=== PATIENT | female | born 1955 | race Caucasian/White ===

== ENCOUNTER → 2017-07-23 | Outpatient (CLI) | payer OTHER ==
--- NOTE | 2017-07-23 09:30 | CT ---
EXAMINATION TYPE: CT iac wo con DATE OF EXAM: 07/23/2017 COMPARISON: NONE HISTORY: Tinnitus, Mastoiditis CT DLP: 142.70mGycm Automated exposure control for dose reduction was used. FINDINGS: The external auditory canals are normal without expansion or erosion. The middle ear ossi cles are symmetric and unremarkable. There is no evidence of suspicious surrounding soft tissue dens ity to suggest cholesteatoma. The scutum is preserved bilaterally. The cochlea and the semicircular canals are symmetric and unremarkable. Vestibular aqueduct and internal carotid canal appear unrema rkable. Temporomandibular joints are maintained bilaterally. There are some mucosal thickening is w ithin the left maxillary sinus. Left septal deviation is noted. Small retention cyst within the anter ior right sphenoid sinus. Mild mucosal thickening is within the anterior ethmoid air cells. Frontal s inuses are clear. Mastoid air cells appear clear. IMPRESSION: 1. Normal internal auditory canal study. 2. Mild mucosal thickening and retention cyst within the paranasal sinuses discussed above. Correlate for possible left maxillary sinusitis.
== END | disposition home or self-care (01) ==
LOC: RADCTMAIN 07:19
PROVIDERS: ATTEND Otolaryngology
DX: J34.1 Cyst and mucocele of nose and nasal sinus (principal); J34.89 Other specified disorders of nose and nasal sinuses
CPT/HCPCS: 70480

== ENCOUNTER 2018-02-06 11:03 | Day surgery (SDC) | payer MEDICARE, OTHER ==
[2018-01-31 15:49] VITALS: BMI 30.9
[~2018-02-06 11:03] MED LIST: DEXAMETHASONE SOD PHOSPHATE 10 MG/ML 1 ML VIAL IV ONE; HYDROmorphone 0.5 MG/0.5 ML SYRINGE IVP PRN; LACTATED RINGERS 1,000 ML IV SCH; MIDAZOLAM 2 MG/2 ML VIAL IV PRN; MORPHINE SULFATE 4 MG/ML SYRINGE IV PRN; ONDANSETRON 4 MG/2 ML VIAL IVP ONE; ONDANSETRON 4 MG/2 ML VIAL IVP PRN; Pre Op ABX Message 1 EACH MISC MISCELLANE ONE
[2018-02-06] MEDS ORDERED: ONDANSETRON 4 MG/2 ML VIAL ONE (11:33)
[2018-02-06 11:39] VITALS: RESP 16; TEMP 98.3
[2018-02-06] MEDS ORDERED: fentaNYL (PF) 50 MCG/ML 2 ML AMP ONE (13:10)
[2018-02-06] MEDS ORDERED: PROPOFOL 10 MG/ML 20 ML VIAL IV ONE (13:10)
[2018-02-06] MEDS ORDERED: MIDAZOLAM 2 MG/2 ML VIAL ONE (13:10)
[2018-02-06] MEDS ORDERED: ceFAZolin 1,000 MG/50 ML BAG (PMX) IVPB ONE (13:17)
[2018-02-06] MEDS ORDERED: SODIUM CHLORIDE 0.9% 50 ML with ceFAZolin 2,000 MG IV ONE ×2 (13:17)
[2018-02-06] MEDS ORDERED: BUPIVACAINE (PF) 0.25% 30 ML VIAL SQ ONE (13:25)
[2018-02-06 14:08] VITALS: PULSE 63
--- NOTE | 2018-02-06 14:14 | P.OP ---
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 The patient's left foot and ankle were then prepped and draped in the usual aseptic manner and over heavy web roll padding an ankle tourniquet was placed above the malleoli of the patient's left ankle At this point in time attention was directed to the dorsal aspect of the third metatarsal where an approximately 3 cm dorsolinear incision was made the incision was deepened via sharp dissection down through the level of the subcutaneous tissue layers all neurovascular structures encountered were identified isolated and were retracted and any bleeding vessels were clamped electrocauterized dissection was then carried deep down to level of the Periosteal Structures Overlying the Metaphysis Area of the Distal Aspect of the Third Metatarsal Where 28-gauge Monofilament Stainless Steel Wire Was Identified Fixating a past Osteotomy This Was Cut and Removed in Total from the Surgical Site. At This Point in Time V Metatarsal Osteotomy Was Performed and a Dorsal to Plantar Manner upon Completion of the Osteotomy the Capital Fragment Was Displaced Dorsally by Approximately 2 Mm and Impacted Back upon the Ten Created by the Osteotomy. The Osteotomy Was Then Fixated with a 0.45 K Wire. Throughout the Surgical Procedure Copious Amounts Sterile Saline Solution Was Used To Irrigate the Surgical Site. Periosteal Structures and Subcutaneous Tissues Were Then Coaptated and Maintained Utilizing 3-0 Vicryl Simple Interrupted Suture and the Skin Was Closed Utilizing 4-0 Vicryl Simple Interrupted Suture. Adaptic Kerlix Fluffs Four-Inch Conformer and 4 Inch Coban Was Used To Form a Compression Dressing and the Ankle Tourniquet to the Patient's Left Ankle Was Deflated Adequate Hemostatic Return Was Seen in All Digits the Patient's Left Foot Specifically the Third Digit the Patient Tolerated the Surgery and Anesthesia Well Was Taken Recovery Room in Good Postoperative Condition
[2018-02-06 14:25] VITALS: BP 115/67
== END 2018-02-06 14:39 ==
LOC: OR 11:03
PROVIDERS: ATTEND Podiatrist Foot & Ankle Surgery
DX: M89.8X7 Other specified disorders of bone, ankle and foot (principal); M89.3 Hypertrophy of bone; M19.90 Unspecified osteoarthritis, unspecified site; Z79.891 Long term (current) use of opiate analgesic; Z79.51 Long term (current) use of inhaled steroids; Z79.899 Other long term (current) drug therapy; Z87.891 Personal history of nicotine dependence

== ENCOUNTER → 2019-09-12 | Outpatient (CLI) | payer MEDICARE, OTHER ==
--- NOTE | 2019-09-12 12:57 | CTL ---
EXAMINATION TYPE: CT Low Dose Lung DATE OF EXAM ORDERED: 09/12/2019 HISTORY: Long-term tobacco use. Lung cancer screening CT DLP: [address]DI: 2.83 mGy Automated exposure control for dose reduction was used. SCREENING VISIT: Initial study COMPARISON: None TECHNIQUE: Low dose computed tomography scan was performed through the chest at 1 mm thick sections a nd reconstructed images in the coronal plane at [address] DIAGNOSTIC QUALITY: Satisfactory FINDINGS: LUNG NODULES: Non of significance. Incidental calcified 4 x 3 mm right lower lobe nodule or granuloma axial image 153 LUNGS: COPD: Severity: None Fibrosis: Severity: Mild bibasilar Lymph nodes: None Other findings: None BILATERAL PLEURAL SPACE: Effusion: None Calcification: None Thickening: None Pneumothorax: None HEART: Heart Size: Normal Coronary calcification: None Pericardial effusion: None OTHER FINDINGS: Upper abdomen: None Bony thorax: Mild multilevel spurring. Supraclavicular region: None Other: None. IMPRESSION: No suspicious nodules are evident. FOLLOW UP CT CHEST RECOMMENDATION: Annual low-dose lung screening CT. CT LUNG RAD: Lung-Rad 1 Negative
== END | disposition home or self-care (01) ==
LOC: RADCTMAIN 11:28
PROVIDERS: ATTEND Family Medicine
DX: Z12.2 Encounter for screening for malignant neoplasm of respiratory organs (principal); Z87.891 Personal history of nicotine dependence

== ENCOUNTER 2019-09-18 08:30 | Day surgery (SDC) | payer MEDICARE, OTHER ==
[2019-09-16 12:49] VITALS: BMI 32.5
[~2019-09-18 08:30] MED LIST changes: -DEXAMETHASONE SOD PHOSPHATE 10 MG/ML 1 ML VIAL IV ONE; -HYDROmorphone 0.5 MG/0.5 ML SYRINGE IVP PRN; +LIDOCAINE 1% 20 ML VIAL (10MG/ML) FOR IV START INTRADERMA PRN; -MIDAZOLAM 2 MG/2 ML VIAL IV PRN; -MORPHINE SULFATE 4 MG/ML SYRINGE IV PRN; -ONDANSETRON 4 MG/2 ML VIAL IVP ONE; -ONDANSETRON 4 MG/2 ML VIAL IVP PRN; -Pre Op ABX Message 1 EACH MISC MISCELLANE ONE
[2019-09-18 08:48] VITALS: RESP 18; TEMP 98.1
[2019-09-18] MEDS ORDERED: PROPOFOL 10 MG/ML 20 ML VIAL IV ONE (09:24)
[2019-09-18] MEDS ORDERED: LIDOCAINE 1% INJ 10MG/ML (20 ML MDV) ONE (09:24)
--- NOTE | 2019-09-18 09:27 | P.GSHP ---
History of Present Illness H&P Date: 09/18/19 Chief Complaint: Screening colonoscopy Is a 61-year-old female who presents today for screening colonoscopy. Patient denies any significant GI complaints. Past Medical History Past Medical History: Musculoskeletal Disorder, Osteoarthritis (OA) Additional Past Medical History / Comment(s): DDD in neck, sciatic pain down into buttocks History of Any Multi-Drug Resistant Organisms: None Reported Past Surgical History: Ear Surgery, Orthopedic Surgery, Tubal Ligation Additional Past Surgical History / Comment(s): Left foot surgery, left knee surgery X2, left ear tube. Past Anesthesia/Blood Transfusion Reactions: No Reported Reaction Past Psychological History: No Psychological Hx Reported Smoking Status: Current every day smoker Past Alcohol Use History: Occasional Additional Past Alcohol Use History / Comment(s): Quit smoking Dec 14, smoked for 50 yrs, 1 PPD, started smoking again 8 months ago Past Drug Use History: None Reported - Past Family History Mother Family Medical History: No Reported History Medications and Allergies Home Medications Medication Instructions Recorded Confirmed Type Hydrocodone/Acetaminophen 1 each PO BID 01/31/18 09/16/19 History [Hydrocodon-Acetaminophn 10-325] Morphine Sulfate [Morphine Sulfate 15 mg PO BID 01/31/18 09/16/19 History ER] Allergies Allergy/AdvReac Type Severity Reaction Status Date / Time No Known Allergies Allergy Verified 09/16/19 12:45 Surgical - Exam Vital Signs Temp Pulse Resp BP Pulse Ox 98.1 F 94 18 134/79 94 L 09/18/19 08:46 09/18/19 08:46 09/18/19 08:46 09/18/19 08:46 09/18/19 08:46 - General well developed, well nourished, no distress - Eyes PERRL - ENT normal pinna - Neck no masses - Respiratory normal expansion - Cardiovascular Rhythm: regular - Abdomen Abdomen: soft, non tender Assessment and Plan Assessment: We'll perform screening colonoscopy.
--- NOTE | 2019-09-18 09:45 | P.OP ---
Date of Procedure: 09/18/19 Preoperative Diagnosis: Screening colonoscopy Postoperative Diagnosis: Diverticulosis Procedure(s) Performed: Colonoscopy Anesthesia: JAYASHREE Surgeon: Lev Salas Pathology: none sent Condition: stable Disposition: PACU Description of Procedure: The patient's placed on the endoscopy table in the lateral position. She received IV sedation. Digital rectal exam was performed. The flexible colonoscope was then placed patient anus passed rotator entire colon. The ileocecal valve was visually is. The cecum, ascending and transverse colon appeared normal. In the descending and; there is evidence of diverticulosis. There is known to diverticulitis. Scope was then brought back the rectum and this appeared normal. Scope withdrawn for patient.
[2019-09-18 09:47] VITALS: PULSE 79
[2019-09-18 10:06] VITALS: BP 120/80
== END 2019-09-18 10:40 | disposition home or self-care (01) ==
LOC: ORWHC2ENDO 08:30
PROVIDERS: ATTEND Surgery
DX: Z12.11 Encounter for screening for malignant neoplasm of colon (principal); K57.30 Diverticulosis of large intestine without perforation or abscess without bleeding; M19.90 Unspecified osteoarthritis, unspecified site; M50.30 Other cervical disc degeneration, unspecified cervical region; F17.210 Nicotine dependence, cigarettes, uncomplicated; Z98.890 Other specified postprocedural states; Z98.51 Tubal ligation status; Z79.891 Long term (current) use of opiate analgesic
CPT/HCPCS: J2001; J2704; G0121

== ENCOUNTER → 2019-09-19 | Outpatient (CLI) | payer MEDICARE, OTHER ==
--- NOTE | 2019-09-19 10:47 | MR ---
EXAMINATION TYPE: MR knee RT wo con DATE OF EXAM: 09/19/2019 COMPARISON: None HISTORY: Right knee pain TECHNIQUE: Multiplanar, multisequence images of the knee is performed without IV contrast. FINDINGS: MEDIAL MENISCUS: Anterior and posterior horns are intact without tear. LATERAL MENISCUS: Anterior horn lateral meniscus appears largely intact. A small amount of increased signal within the posterior aspect of the anterior horn may be present could be some mild internal de rangement. Posterior horn lateral meniscus has long weak signal extending towards the inferior articu lar surface compatible with internal arrangement or along the tear. Communication with the inferior a rticular surface is not well visualized. CRUCIATE LIGAMENTS: The anterior and posterior cruciate ligaments are intact and unremarkable. COLLATERAL LIGAMENTS: The medial collateral ligament and lateral collateral ligament complex are inta ct and unremarkable. EXTENSOR MECHANISM: Visualized quadriceps and patellar tendons are intact. EFFUSION: Small to moderate joint effusion is present. POPLITEAL CYST: No popliteal/schreiber cyst. TRICOMPARTMENT SPACES: There is narrowing of the lateral compartment joint space. Within the anterior aspect just above the tibia there is an area of focal increased signal which may extend towards the tibia has communication with the joint fluid. Synovial cyst could be considered. Meniscal cyst could be within the differential although location is atypical. There is some intermediate signal within th is fluid collection. No free body is identified on the plain films. Note is made of lateral tibial pl ateau and lateral femoral condylar spurring. CARTILAGE: There is diffuse thinning of the articular cartilage. There is a small focal area of incre ased signal within the articular cartilage on the lateral femoral condyle. Series 401 image 19, serie s 301 image 22. A small articular cartilage fracture could be considered. There is milder thinning of the patellofemoral articular cartilage. BONE MARROW SIGNAL: No focal abnormal marrow signal is appreciated. OTHER: No additional significant abnormality is appreciated. IMPRESSION: 1. Diffuse osteoarthritic degenerative change. 2. Oblique tear posterior horn lateral meniscus. 3. Small internal arrangement of the posterior aspect of the anterior horn lateral meniscus may also be present. 4. Suspected articular cartilage fracture of the lateral femoral condyle articular cartilage.
== END | disposition home or self-care (01) ==
LOC: RADMRIMAIN 08:32
PROVIDERS: ATTEND Orthopaedic Surgery
DX: S83.241A Other tear of medial meniscus, current injury, right knee, initial encounter (principal); M17.11 Unilateral primary osteoarthritis, right knee

== ENCOUNTER → 2019-10-14 | Outpatient (CLI) | payer MEDICARE, OTHER ==
--- NOTE | 2019-10-15 11:48 | MM ---
Reason for exam: screening (asymptomatic). Last mammogram was performed 4 years and 5 months ago. History: Patient is postmenopausal. Took estrogen for 1 year beginning at age 52. Took progesterone for 1 year beginning at age 52. Physical Findings: A clinical breast exam by your physician is recommended on an annual basis and results should be correlated with mammographic findings. MG 3D Screening Mammo W/Cad Bilateral CC and MLO view(s) were taken. Prior study comparison: May 19, 2015, bilateral MG screening mammo w CAD. January 22, 2014, bilateral digital screening mammo w/CAD. There are scattered fibroglandular densities. No suspicious abnormality. No significant changes when compared with prior studies. ASSESSMENT: Negative, BI-RAD 1 RECOMMENDATION: Routine screening mammogram of both breasts in 1 year.
== END | disposition home or self-care (01) ==
LOC: RADMAMWWP 08:59
PROVIDERS: ATTEND Family Medicine
DX: Z12.31 Encounter for screening mammogram for malignant neoplasm of breast (principal)
CPT/HCPCS: 77063; 77067

== ENCOUNTER → 2019-11-27 | Outpatient (CLI) | payer MEDICARE, OTHER ==
[2019-11-27 10:35] LABS: Basophils % (A) 0 %; Eosinophils # (A) 0.1 k/uL (0-0.7); Eosinophils % (A) 1 %; HCT 44.2 % (34.0-46.0); HGB 14.3 gm/dL (11.4-16.0); Lymphocytes # (A) 0.9 k/uL (1.0-4.8); Lymphocytes % (A) 10 %; MCH 29.9 pg (25.0-35.0); MCHC 32.4 g/dL (31.0-37.0); MCV 92.3 fL (80.0-100.0); Mean Platelet Volume 7.1; Monocytes # (A) 0.3 k/uL (0-1.0); Monocytes % (A) 3 %; Neutrophils # (A) 7.4 k/uL (1.3-7.7); Neutrophils % (A) 86 %; Platelet Count 249 k/uL (150-450); Potassium 4.4 mmol/L (3.5-5.1); RBC 4.79 m/uL (3.80-5.40); WBC 8.7 k/uL (3.8-10.6)
== END | disposition home or self-care (01) ==
LOC: LABPAT 09:42
PROVIDERS: ATTEND Orthopaedic Surgery
DX: Z01.818 Encounter for other preprocedural examination (principal); Z01.812 Encounter for preprocedural laboratory examination; M23.91 Unspecified internal derangement of right knee
CPT/HCPCS: 36415; 80051; 85025; 93005

== ENCOUNTER 2019-12-04 07:53 | Day surgery (SDC) | payer MEDICARE, OTHER ==
[2019-12-02 11:42] VITALS: BMI 32.5
--- NOTE | 2019-12-03 20:28 | HP ---
HISTORY AND PHYSICAL REASON FOR ADMISSION: Surgery scheduled 12/04/2019. Marta Schofield is a 64-year-old patient seen with progressive right knee pain. We discussed options for treatment. She elected to proceed with right knee arthroscopy. Consent was obtained. PAST MEDICAL HISTORY: Chronic opioid use. PAST SURGICAL HISTORY: Left knee arthroscopy. MEDICATIONS: Morphine sulfate, [place]. ALLERGIES: None. SOCIAL HISTORY: Smokes 1 pack of cigarettes daily. PHYSICAL EXAMINATION: Evaluation of the right knee range of motion is 0-125. She has a [id number] effusion. Tenderness medial joint line. Positive medial Amador's. Ligaments are stable. Hip rotation is without pain. Her distal neurovascular exam is intact. RADIOGRAPHS: Right knee radiographs revealed mild osteoarthritis. MRI right knee revealed lateral meniscal tear. IMPRESSION: 1. Internal derangement, right knee lateral meniscal tear. 2. Right knee osteoarthritis. 3. Chronic opioid use. PLAN: Right knee arthroscopy with partial meniscectomy and debridement. MMODL / IJN: [id number] /
[~2019-12-04 07:53] MED LIST changes: +DEXAMETHASONE SOD PHOSPHATE 10 MG/ML 1 ML VIAL IV ONE; +ONDANSETRON 4 MG/2 ML VIAL IVP ONE; +SCOPOLAMINE 1.5MG/72HR PATCH TRANSDERM ONE
[2019-12-04] MEDS ORDERED: SUCCINYLCHOLINE CHLORIDE 100 MG/5 ML SYR IV ONE (09:20)
[2019-12-04] MEDS ORDERED: fentaNYL (PF) 50 MCG/ML 2 ML AMP ONE (09:20)
[2019-12-04] MEDS ORDERED: PROPOFOL 10 MG/ML 20 ML VIAL IV ONE (09:20)
[2019-12-04] MEDS ORDERED: MIDAZOLAM 2 MG/2 ML VIAL ONE (09:20)
[2019-12-04] MEDS ORDERED: LIDOCAINE 1% INJ 10MG/ML (20 ML MDV) ONE (09:20)
[2019-12-04] MEDS ORDERED: BUPIVACAIN-EPI 0.25%-1:200,000 30 ML VIAL INTRAARTIC ONE ×2 (09:27→09:59)
[2019-12-04 10:15] VITALS: TEMP 97.1
[2019-12-04] MEDS: HYDROmorphone 0.5 MG/0.5 ML SYRINGE IVP PRN ×2 (10:15→10:20)
--- NOTE | 2019-12-04 10:15 | P.OP ---
Date of Procedure: 12/04/19 Preoperative Diagnosis: Internal derangement right knee Postoperative Diagnosis: 1. Tear lateral meniscus right knee 2. Grade 4 chondromalacia medial femoral condyle right knee 3. Grade 3/4 chondromalacia lateral femoral condyle right knee 4. Reactive synovitis medial, lateral and suprapatellar compartments right knee Procedure(s) Performed: 1. Arthroscopic partial lateral meniscectomy right knee 2. Arthroscopic chondroplasty medial femoral condyle right knee 3. Arthroscopic chondroplasty lateral femoral condyle right knee 4. Arthroscopic partial synovectomy medial, lateral and suprapatellar compartments right knee Anesthesia: JENNIFERA, local Surgeon: Vincent Lazo Estimated Blood Loss (ml): 11 Pathology: none sent Condition: stable Disposition: PACU Indications for Procedure: 64-year-old patient seen with progressive right knee pain. After treatment options were discussed, she elected to proceed with arthroscopy. Operative Findings: See description of procedure Description of Procedure: Patient was taken to the operative suite. Patient underwent a general anesthetic by the department of anesthesia. Patient was given preoperative antibiotics. The right lower extremity was placed in a well-padded arthroscopic leg velasquez. The right leg was prepped and draped in the normal sterile orthopedic fashion. A lateral parapatellar and suprapatellar incision was made. Trochars were inserted. Arthroscopy was initiated. Suprapatellar pouch revealed diffuse thick reactive synovitis. The patellofemoral joint appeared to articulate congruently. There was grade 1/2 chondromalacia of the patella with no osteochondral tears present. The scope was guided into the medial gutter. No loose bodies or plica were identified. The scope was then guided into the medial compartment. A medial parapatellar incision was made. Trocar inserted followed by probe. There was some fraying posterior horn medial meniscus. There was an area of grade 4 chondromalacia weightbearing surface central portion medial femoral condyle with peripheral osteochondral flap tears present. There was thick reactive synovitis anteriorly. I performed a chondroplasty of the medial femoral condyle down to stable tissue. I debrided that area fraying. I performed a partial synovectomy decompressing thick reactive synovitis. The residual osteochondral surface was stable with again a grade 4 area centrally with exposed bone. There was good decompression of synovitis. I performed a microfracture to medial femoral condyle penetrating the bone with resultant bleeding at the microfracture site. Scope and probe were then guided into the intercondylar notch. Cruciates were identified, probed and found to be stable. The scope and probe were then guided into lateral compartment. There was a complex tear lateral meniscus involving the anterior horn and midbody and posterior horn. There were areas of grade 3/4 chondromalacia lateral femoral condyle with some osteochondral flap tears present. There was thick reactive synovitis anteriorly. I performed a partial lateral meniscectomy. I performed a chondroplasty lateral femoral condyle. I performed a partial synovectomy decompressing the reactive synovitis. Shaver was removed. There was good decompression of synovitis. The residual meniscus was stable. The residual osteochondral surface was stable. The scope was in guided back into the suprapatellar compartment. I introduced a motorized shaver into the suprapatellar compartment. I debrided some piecemeal fragments of meniscus I encountered. I performed a partial synovectomy decompressing reactive synovitis. The shaver was removed. I took one more look on the entire knee, no residual debris. Instruments were now removed from the joint. The joint was infiltrated with .25% Marcaine. Steri-Strips were applied to the portal sites. Sterile dressings were applied. The patient was placed into a RABIA hose. No tourniquet was utilized. The patient was awakened, transferred to a bed and taken to recovery stable satisfactory condition.
[2019-12-04 11:33] VITALS: BP 121/74; PULSE 68; RESP 14
== END 2019-12-04 11:44 | disposition home or self-care (01) ==
LOC: OR 07:53
PROVIDERS: ATTEND Orthopaedic Surgery
DX: M23.241 Derangement of anterior horn of lateral meniscus due to old tear or injury, right knee (principal); M23.261 Derangement of other lateral meniscus due to old tear or injury, right knee; M23.251 Derangement of posterior horn of lateral meniscus due to old tear or injury, right knee; M94.261 Chondromalacia, right knee; M65.861 Other synovitis and tenosynovitis, right lower leg; M22.41 Chondromalacia patellae, right knee; M17.11 Unilateral primary osteoarthritis, right knee; F17.210 Nicotine dependence, cigarettes, uncomplicated; Z79.891 Long term (current) use of opiate analgesic; Z97.2 Presence of dental prosthetic device (complete) (partial); Z87.81 Personal history of (healed) traumatic fracture; Z98.890 Other specified postprocedural states; Z98.51 Tubal ligation status
CPT/HCPCS: 29881; J2250; J1100; J0690; J2405; J2001; J3010; J0330; J2704; J1170

== ENCOUNTER → 2020-07-26 | Outpatient (CLI) | payer MEDICARE, OTHER ==
--- NOTE | 2020-07-26 12:24 | MR ---
EXAMINATION TYPE: MR shoulder LT wo con DATE OF EXAM: 07/26/2020 COMPARISON: Plain film 06/25/2020 from outside institution HISTORY: L shoulder pain TECHNIQUE: Multiplanar, multisequence imaging of the left shoulder is performed without contrast. FINDINGS: There is motion on the exam. Rotator Cuff: There is abnormal thickening of the rotator cuff . Abnormal increased signal is associated with the rotator cuff, questionable discontinuity of the in sertion on the greater tuberosity. Acromioclavicular Joint: Hypertrophic changes are present, there is arthropathy with some associated calcification noted on plain film. Distal acromion shows irregular appearance Glenohumeral Joint: Intact with associated spurring consistent with osteoarthritis, there is some thi ckening at the inferior glenohumeral ligament Labrum: The labrum appears grossly intact given limitation of non-arthrogram study. Biceps Tendon: Fluid signal is present along the long head biceps tendon which shows a normal positio n Bone marrow signal: No focal abnormal marrow signal is appreciated. Other: There is multilocular fluid collection along the subscapularis tendon measuring approximately 1.6 x 3.4 x 2.2 cm, lobulated appearance, intermediate signal on T1, increased on T2's data set. Ther e is some fluid signal along the subdeltoid region IMPRESSION: Probable tendinosis, tendinopathy involving the rotator cuff, difficult to exclude partial thicknes s tear. Probable ganglion cyst along subscapularis tendon. Osteoarthritis. Correlate for impingement. There may be some associated synovitis.
== END | disposition home or self-care (01) ==
LOC: RADMRIMAIN 07:22
PROVIDERS: ATTEND Orthopaedic Surgery
DX: M19.012 Primary osteoarthritis, left shoulder (principal)

== ENCOUNTER → 2020-08-18 | Outpatient (CLI) | payer MEDICARE, OTHER ==
[2020-08-18 12:19] LABS: Basophils % (A) 0 %; Eosinophils # (A) 0.1 k/uL (0-0.7); Eosinophils % (A) 2 %; HCT 44.5 % (34.0-46.0); HGB 14.2 gm/dL (11.4-16.0); Lymphocytes # (A) 1.7 k/uL (1.0-4.8); Lymphocytes % (A) 35 %; MCH 28.6 pg (25.0-35.0); MCHC 31.8 g/dL (31.0-37.0); MCV 89.7 fL (80.0-100.0); Mean Platelet Volume 7.3; Monocytes # (A) 0.2 k/uL (0-1.0); Monocytes % (A) 5 %; Neutrophils # (A) 2.6 k/uL (1.3-7.7); Neutrophils % (A) 55 %; Platelet Count 205 k/uL (150-450); RBC 4.96 m/uL (3.80-5.40); RDW 12.3 % (11.5-15.5); WBC 4.7 k/uL (3.8-10.6)
[2020-08-18 12:29] LABS: Potassium 4.2 mmol/L (3.5-5.1)
== END | disposition home or self-care (01) ==
LOC: LABPAT 11:02
PROVIDERS: ATTEND Orthopaedic Surgery
DX: M75.42 Impingement syndrome of left shoulder (principal)
CPT/HCPCS: 36415; 80051; 85025

== ENCOUNTER 2020-09-02 09:31 | Day surgery (SDC) | payer MEDICARE, OTHER ==
[2020-09-01 10:29] VITALS: BMI 32.5
--- NOTE | 2020-09-01 15:15 | HP ---
HISTORY AND PHYSICAL DATE OF SURGERY: 09/02/2020 Marta Schofield is a 65-year-old patient seen with progressive left shoulder pain. We discussed options for treatment. She elected to proceed with arthroscopy. Consent was obtained. PAST MEDICAL HISTORY: Noncontributory. PAST SURGICAL HISTORY: Left knee arthroscopy. DAILY MEDICATIONS: Morphine and [place]. ALLERGIES: NONE. SOCIAL HISTORY: She smokes one pack of cigarettes daily. PHYSICAL EVALUATION OF THE LEFT SHOULDER: Flexion is 90, abduction is 80, external rotation is 40 with pain and weakness. There is tenderness along the anterolateral acromion and rotator cuff insertion site. Impingement is positive at 90. Drop-arm sign positive. Distal neurovascular exam is intact. RADIOGRAPHS: Radiographs of the left shoulder revealed a type 2 anterior acromion, acromioclavicular joint osteoarthritis and cystic changes of the greater tuberosity. Left shoulder MRI revealed partial rotator cuff tendon tearing as well as acromioclavicular joint osteoarthritis. IMPRESSION: 1. Left shoulder impingement with rotator cuff tear. 2. Left shoulder acromioclavicular joint osteoarthritis. 3. Chronic opioid use. 4. Tobacco use. PLAN: Left shoulder arthroscopy with subacromial decompression, arthroscopic rotator cuff repair, Luann procedure and debridement. MMODL / IJN: [id number] /
[~2020-09-02 09:31] MED LIST changes: +LIDOCAINE 1% (10MG/ML) FOR IV START INTRADERMA PRN; -LIDOCAINE 1% 20 ML VIAL (10MG/ML) FOR IV START INTRADERMA PRN; +MIDAZOLAM 2 MG/2 ML VIAL IV PRN; -ONDANSETRON 4 MG/2 ML VIAL IVP ONE; -SCOPOLAMINE 1.5MG/72HR PATCH TRANSDERM ONE; +fentaNYL (PF) 50 MCG/ML 2 ML AMP IVP PRN
[2020-09-02] MEDS ORDERED: ONDANSETRON 4 MG/2 ML VIAL ONE (09:58)
--- NOTE | 2020-09-02 10:40 | P.ANPRN ---
Procedure Note - Anesthesia - Nerve Block Performed Left Interscalene Single Time Out Performed: Yes Date of Procedure: 09/02/20 Procedure Start Time: 10:31 Procedure Stop Time: 10:35 Location of Patient: PreOp Indication: Acute Post-Operative Pain, Requested by Surgeon Specifically requested for management of pain by DrLuis: Vincent Lazo Sedation Type: Sedate with meaningful contact maintained Preparation: Sterile Prep Position: Supine Catheter: None Needle Types: Pajunk Needle Gauge: 21 Ultrasound used to visualize needle placement: Yes Ultrasound used to observe medication spread: Yes Injectate: 0.5% Ropivacaine (see comment for volume) (20 ml) Blood Aspirated: No Pain Paresthesia on Injection Noted: No Resistance on Injection: Normal Image Stored and Saved: Yes Events: Uneventful and Well Tolerated
[2020-09-02] MEDS ORDERED: KETOROLAC 15 MG/ML 1 ML VIAL ONE (11:16)
[2020-09-02] MEDS ORDERED: SUCCINYLCHOLINE CHLORIDE 100 MG/5 ML SYR IV ONE (11:16)
[2020-09-02] MEDS ORDERED: PROPOFOL 10 MG/ML 20 ML VIAL IV ONE (11:16)
[2020-09-02] MEDS ORDERED: fentaNYL (PF) 50 MCG/ML 2 ML AMP ONE (11:16)
[2020-09-02] MEDS ORDERED: MIDAZOLAM 2 MG/2 ML VIAL ONE (11:16)
[2020-09-02] MEDS ORDERED: LIDOCAINE 1% INJ 10MG/ML (20 ML MDV) ONE (11:16)
[2020-09-02] MEDS ORDERED: ROPIVACAINE 5 MG/ML 30 ML VIAL ONE (11:16)
--- NOTE | 2020-09-02 12:38 | P.OP ---
Date of Procedure: 09/02/20 Preoperative Diagnosis: Left shoulder impingement Postoperative Diagnosis: 1. Left shoulder impingement 2. Left shoulder acromioclavicular joint osteoarthritis 3. Left shoulder grade 3/4 glenohumeral joint osteoarthritis 4. Left shoulder partial long head biceps tendon tear 5. Left shoulder superficial rotator cuff tear Procedure(s) Performed: 1. Left shoulder arthroscopic subacromial decompression 2. Left shoulder arthroscopic Luann procedure 3. Left shoulder arthroscopic chondroplasty humeral head 4. Left shoulder arthroscopic biceps tenotomy 5. Left shoulder arthroscopic debridement partial rotator cuff tear Implants: None Anesthesia: GETA, regional (Interscalene block) Surgeon: Vincent Lazo Dairy Specialist #1: Abhishek Gary Estimated Blood Loss (ml): 10 Pathology: none sent Condition: stable Disposition: PACU Indications for Procedure: 65-year-old patient seen with progressive left shoulder pain. After having treatment options discussed, she elected to proceed with arthroscopy Operative Findings: see description of procedure Description of Procedure: Patient underwent an interscalene block by department of anesthesia. The patient was then taken to the operative suite. The patient underwent a general anesthetic by the department of anesthesia. The patient was placed into a lateral position and secured. There was appropriate padding of the bony prominence. Left shoulder was then prepped and draped in normal sterile orthopedic fashion. We placed the extremity in 10 pounds of longitudinal traction. A posterior incision was now made for a posterior working portal site. The trocar and cannula were inserted into the glenohumeral joint. Arthroscopy was initiated. Spinal needle was now inserted anteriorly, to ascertain the ante rior working portal site. An incision was now made in that area, a trocar was inserted followed by a probe. There was some superficial fraying of the superior labrum. There was partial tearing and hyperemia long head biceps tendon. There was an area of grade 3/4 chondromalacia central portion humeral head with some osteochondral flap tears present. The remainder labrum was probed and found to be stable. I performed an arthroscopic biceps tenotomy. I performed a chondroplasty of the humeral head. I debrided the superficial labral tear. I reduced my probe. I again probed out the labrum and it was stable. The residual osteochondral surface of the humeral head was stable. There was a central portion measuring about 1 x 1.5 cm with exposed bone. At this point instruments removed from the glenohumeral joint. Utilizing the posterior working portal site, the trocar and cannula were inserted into the subacromial space. Arthroscopy initiated. I made an incision 2 fingerbreadths lateral to the acromion. I introduced my trocar followed by my ArthroCare ablator. I now began ablating thick subacromial bursal tissue, which exposed the undersurface of the anterior acromion. There was diminished subacromial space. There was a very prominent anterior acromion. A motorized bur was introduced and a subacromial decompression was performed. I also excised some osteophytes off the inferior aspect of the distal clavicle. The AC joint was visualized and noted to be fairly arthritic. The motorized bur was introduced in the anterior portal site and a Luann procedure was performed wit hout difficulty, decompressing the AC joint nicely. I turned my attention to the rotator cuff. There was some superficial tearing along the distal supraspinatus. I introduced a motorized shaver and debrided that down to stable tendon tissue. I now probed the area again and did not find a perforation. The remaining tendon was stable.. I injected 1 mL Renyte intra-articular. Instruments now removed from the portal sites. All portal sites were approximated with nylon suture. Sterile dressings were applied followed by a shoulder sling. Abhishek HAGAN assisted in this case. The patient was awakened, transferred to a bed, and taken to recovery in stable condition.
[2020-09-02 12:49] VITALS: TEMP 97
[2020-09-02 13:00] VITALS: RESP 16
[2020-09-02 14:02] VITALS: BP 113/78; PULSE 89
== END 2020-09-02 14:14 | disposition home or self-care (01) ==
LOC: OR 09:31
PROVIDERS: ATTEND Orthopaedic Surgery
DX: M75.102 Unspecified rotator cuff tear or rupture of left shoulder, not specified as traumatic (principal); S46.112A Strain of muscle, fascia and tendon of long head of biceps, left arm, initial encounter; X58.XXXA Exposure to other specified factors, initial encounter; M94.212 Chondromalacia, left shoulder; M25.712 Osteophyte, left shoulder; M19.012 Primary osteoarthritis, left shoulder; F17.210 Nicotine dependence, cigarettes, uncomplicated; J44.9 Chronic obstructive pulmonary disease, unspecified; Z97.2 Presence of dental prosthetic device (complete) (partial); Z79.891 Long term (current) use of opiate analgesic
CPT/HCPCS: 29823; 29824; 64415; 76942; Q4212; J2250; J1100; J0690; J2405; J2001; J3010; J2795; J1885; J0330; J2704

== ENCOUNTER → 2021-02-17 | Outpatient (CLI) | payer MEDICARE, OTHER ==
--- NOTE | 2021-02-17 08:40 | CTL ---
Addendum: LUNGS: COPD: Severity: None Fibrosis: Severity: None Lymph nodes: None Other findings: None IMPRESSION: No suspicious changes to suggest neoplasm. FOLLOW UP CT CHEST RECOMMENDATION: Follow-up low-dose CT chest one year CT LUNG RAD: Lung-Rad 1 Negative
--- NOTE | 2021-02-17 14:35 | MM ---
Reason for exam: screening (asymptomatic). Last mammogram was performed 1 year and 4 months ago. History: Patient is postmenopausal. Took estrogen for 1 year beginning at age 52. Took progesterone for 1 year beginning at age 52. Physical Findings: A clinical breast exam by your physician is recommended on an annual basis and results should be correlated with mammographic findings. MG 3D Screening Mammo W/Cad Bilateral CC and MLO view(s) were taken. Prior study comparison: October 14, 2019, bilateral MG 3d screening mammo w/cad. May 19, 2015, bilateral MG screening mammo w CAD. There are scattered fibroglandular densities. No significant changes when compared with prior studies. ASSESSMENT: Benign, BI-RAD 2 RECOMMENDATION: Routine screening mammogram of both breasts in 1 year.
== END | disposition home or self-care (01) ==
LOC: RADMAMWWP 07:02
PROVIDERS: ATTEND Family Medicine
DX: Z12.31 Encounter for screening mammogram for malignant neoplasm of breast (principal); Z12.2 Encounter for screening for malignant neoplasm of respiratory organs; Z87.891 Personal history of nicotine dependence; Z78.0 Asymptomatic menopausal state
CPT/HCPCS: 71271; 77063; 77067

== ENCOUNTER → 2022-02-21 | Outpatient (CLI) | payer MEDICARE, OTHER ==
--- NOTE | 2022-02-23 09:32 | MM ---
Reason for exam: screening (asymptomatic). Last mammogram was performed 1 year ago. History: Patient is postmenopausal. Took estrogen for 1 year beginning at age 52. Took progesterone for 1 year beginning at age 52. Physical Findings: A clinical breast exam by your physician is recommended on an annual basis and results should be correlated with mammographic findings. MG 3D Screening Mammo W/Cad Bilateral CC and MLO view(s) were taken. Prior study comparison: February 17, 2021, bilateral MG 3d screening mammo w/cad. October 14, 2019, bilateral MG 3d screening mammo w/cad. There are scattered fibroglandular densities. No significant changes when compared with prior studies. ASSESSMENT: Benign, BI-RAD 2 RECOMMENDATION: Routine screening mammogram of both breasts in 1 year.
== END | disposition home or self-care (01) ==
LOC: RADMAMWWP 07:15
PROVIDERS: ATTEND Family Medicine
DX: Z12.31 Encounter for screening mammogram for malignant neoplasm of breast (principal)
CPT/HCPCS: 77063; 77067

== ENCOUNTER 2022-02-24 06:23 | Emergency (ER) | payer MEDICARE, OTHER ==
[2022-02-24 06:36] VITALS: BP 128/86; PULSE 71; RESP 19; TEMP 98
[2022-02-24] MEDS ORDERED: DIPH,PERTUS(ACELL)TETVAC-LF 0.5 ML VIAL IM ONE (06:48)
--- NOTE | 2022-02-24 06:53 | ED ---
General Adult HPI - General Chief complaint: Wound/Laceration Stated complaint: Right arm laceration Time Seen by Provider: 02/24/22 06:38 Source: patient Mode of arrival: ambulatory - History of Present Illness Initial comments: 67-year-old female with a past medical history of COPD, sciatica, presents to the emergency room for a chief complaint of laceration of the right arm. Laceration was obtained to 2 days ago when she was cleaning a glass and it broke cutting her arm. She denies any difficulty moving the arm. Patient is not sure when her tetanus is up-to-date. Patient states her grandson was bothering her to come in and get it looked at as a has had some bleeding on and off.Patient has no other complaints at this time including shortness of breath, chest pain, abdominal pain, nausea or vomiting, headache, or visual changes. - Related Data Home Medications Medication Instructions Recorded Confirmed Hydrocodone/Acetaminophen 1 each PO BID 01/31/18 09/02/20 [Hydrocodon-Acetaminophn 10-325] Morphine Sulfate [Morphine Sulfate 15 mg PO BID 01/31/18 09/02/20 ER] Cholecalciferol [Vitamin D3 (25 1,000 unit PO DAILY 09/01/20 09/02/20 Mcg = 1000 Iu)] Cyanocobalamin (Vitamin B-12) 1,000 mcg PO DAILY 09/01/20 09/02/20 [Vitamin B-12] L.acidoph,Paracasei, B.lactis 1 each PO DAILY 09/01/20 09/02/20 [Probiotic] Allergies Allergy/AdvReac Type Severity Reaction Status Date / Time No Known Allergies Allergy Verified 02/24/22 06:36 Review of Systems ROS Statement: Those systems with pertinent positive or pertinent negative responses have been documented in the HPI. ROS Other: All systems not noted in ROS Statement are negative. Past Medical History Past Medical History: COPD, Musculoskeletal Disorder, Osteoarthritis (OA) Additional Past Medical History / Comment(s): DDD in neck, sciatic pain down into buttocks, frequent urination, urinary leakage, History of Any Multi-Drug Resistant Organisms: None Reported Past Surgical History: Ear Surgery, Orthopedic Surgery, Tubal Ligation Additional Past Surgical History / Comment(s): arthroscopy rt knee, surgery for fx left knee x2, callus removed from left foot, hammer toes left foot, ORIF rt ankle Past Anesthesia/Blood Transfusion Reactions: No Reported Reaction Past Psychological History: Anxiety Smoking Status: Current every day smoker Past Alcohol Use History: None Reported Past Drug Use History: None Reported - Past Family History Mother Family Medical History: No Reported History Father Family Medical History: Deep Vein Thrombosis (DVT) General Exam General appearance: alert, in no apparent distress Head exam: Present: atraumatic Eye exam: Present: normal appearance, PERRL, EOMI ENT exam: Present: normal exam, mucous membranes moist Neck exam: Present: normal inspection, full ROM. Absent: tenderness Respiratory exam: Absent: respiratory distress Extremities exam: Present: other (Patient has 3 centimeter superficial laceration noted of the mid volar aspect of the right arm. No erythema or edema. Tissue edges are healing.) Neurological exam: Present: alert Course Vital Signs 02/24/22 06:33 Temperature 98 F Pulse Rate 71 Respiratory 19 Rate Blood Pressure 128/86 O2 Sat by Pulse 98 Oximetry Medical Decision Making - Medical Decision Making Wound was irrigated with saline pressure irrigation. Given laceration was ob tained 2 days ago the risks of infection with suturing outweigh the benefits. Therefore Steri-Strips were applied. There is no current signs of infection and patient was directed to monitor for this. If she notices any redness, drainage, streaking redness, fevers she will return to the emergency room for antibiotic therapy. Otherwise she will follow up with primary care. Discussed Steri-Strip care as well. Disposition Clinical Impression: Laceration Disposition: HOME SELF-CARE Condition: Good Instructions (If sedation given, give patient instructions): Steristrips (ED) Additional Instructions: Please follow-up with your doctor. If you notice any spreading or streaking redness, drainage, or fevers return to the emergency room. Otherwise tried to limit use of the right arm to help promote healing. Trim Steri-Strips as they come off. Return for any other worsening symptoms. Is patient prescribed a controlled substance at d/c from ED?: No Referrals: Ambrose Decker MD [Primary Care Provider] - 1-2 days Time of Disposition: 06:52
== END 2022-02-24 07:03 | disposition home or self-care (01) ==
LOC: EC 06:23
DX: S41.111A Laceration without foreign body of right upper arm, initial encounter (principal); F17.200 Nicotine dependence, unspecified, uncomplicated; J44.9 Chronic obstructive pulmonary disease, unspecified; M19.90 Unspecified osteoarthritis, unspecified site; Z79.899 Other long term (current) drug therapy; W25.XXXA Contact with sharp glass, initial encounter; Y93.G1 Activity, food preparation and clean up
CPT/HCPCS: 99282

== ENCOUNTER → 2022-08-10 | Outpatient (CLI) | payer MEDICARE, OTHER ==
--- NOTE | 2022-08-10 18:04 | MR ---
EXAMINATION TYPE: MR knee RT wo con DATE OF EXAM: 08/10/2022 COMPARISON: Radiographs 07/25/2022. HISTORY: Pain in right knee TECHNIQUE: Multiplanar, multisequence imaging of the right knee is performed without IV contrast. FINDINGS: LATERAL MENISCUS: Horizontal oblique tear of the anterior horn and body junction. Also small radial t ear of the posterior horn. MEDIAL MENISCUS: Anterior and posterior horns are intact without tear. CRUCIATE LIGAMENTS: The anterior and posterior cruciate ligaments are grossly intact. Mild mucoid deg eneration of the anterior cruciate ligament. COLLATERAL LIGAMENTS: The medial collateral ligament and lateral collateral ligament complex are inta ct without tear. Mild heterogeneity and thickening of the lateral collateral ligament complex consist ent with prior sprain. EXTENSOR MECHANISM: Visualized quadriceps and patellar tendons are intact. EFFUSION: Small knee joint effusion. POPLITEAL CYST: Small popliteal/page cyst. TRICOMPARTMENT SPACES/CARTILAGE: Moderate to severe thinning of the lateral compartment articular car tilage with overlying moderate sized full-thickness chondral defect. Associated increased T2 bone mar row signal within the lateral tibial plateau consistent with degenerative changes. Mild thinning and heterogeneity of the medial compartment with overlying small partial thickness suzanne dral defect. Moderate-sized partial thickness chondral defect overlying the patella lateral facet. BONE MARROW SIGNAL: No acute fracture or dislocation. Associated increased T2 bone marrow signal in t he lateral tibial plateau. OTHER: No additional significant abnormality is appreciated. IMPRESSION: Moderate to severe osteoarthritis of the lateral compartment with degenerative meniscal tearing and f ull-thickness chondromalacia. Mild to moderate osteoarthritis of medial and patellofemoral compartments. Small knee joint effusion and Page's cyst.
== END | disposition home or self-care (01) ==
LOC: RADMRIMAIN 14:34
PROVIDERS: ATTEND Orthopaedic Surgery
DX: M25.561 Pain in right knee (principal)

== ENCOUNTER → 2022-08-24 | Outpatient (CLI) | payer MEDICARE, OTHER ==
[2022-08-24 14:37] LABS: Basophils # (A) 0.03 X 10*3/uL (0.00-0.10); Basophils % (A) 0.4 %; Eosinophils # (A) 0.11 X 10*3/uL (0.04-0.35); Eosinophils % (A) 1.5 %; HGB 14.5 g/dL (12.0-15.0); Immature Grans, Automated 0.3 %; Lymphocytes % (A) 22.3 %; MCH 30.3 pg (27.0-32.0); MCV 92.1 fL (80.0-97.0); Mean Platelet Volume 10.2 fL (9.5-12.2); Monocytes % (A) 8.4 %; NRBC Per 100 WBC 0 /100 WBCS (0.0-0.0); Neutrophils # (A) 4.82 X 10*3/uL (1.80-7.70); Neutrophils % (A) 67.1 %; Platelet Count 280 X 10*3/uL (140-440); RBC 4.78 X 10*6/uL (4.10-5.20); RDW 12.3 % (11.5-14.5); WBC 7.18 X 10*3/uL (4.50-10.00)
[2022-08-24 14:46] LABS: Anion Gap 10.9 mmol/L (10.00-18.00); Carbon Dioxide 25.1 mmol/L (20.0-27.5); Potassium 3.9 mmol/L (3.5-5.5)
== END | disposition home or self-care (01) ==
LOC: LABPAT 09:42
PROVIDERS: ATTEND Orthopaedic Surgery
DX: Z01.812 Encounter for preprocedural laboratory examination (principal); M23.91 Unspecified internal derangement of right knee
CPT/HCPCS: 80051; 85025; 93005

== ENCOUNTER 2022-09-06 08:08 | Day surgery (SDC) | payer MEDICARE, OTHER ==
--- NOTE | 2022-09-06 03:21 | HP ---
HISTORY AND PHYSICAL DATE OF SURGERY: 09/06/2022. HISTORY OF PRESENT ILLNESS: Marta Schofield is a 67-year-old patient seen with progressive right knee pain. We discussed options. She is status post right knee arthroscopy. Consent was obtained. PAST MEDICAL HISTORY: Noncontributory. PAST SURGICAL HISTORY: Knee arthroscopy. DAILY MEDICATIONS: [place]. ALLERGIES: None. SOCIAL HISTORY: Smokes cigarettes. PHYSICAL EVALUATION OF THE RIGHT KNEE: Range of motion 0 to 130. Mild effusion. Tenderness, medial joint line. Tenderness, lateral joint line. Positive medial Amador's. Positive lateral Amador's. Ligaments stable. Hip rotation without pain. Distal neurovascular exam intact. RADIOGRAPHS: Radiographs of the right knee revealed some osteoarthritic changes. MRI of right knee revealed lateral meniscal tear. IMPRESSION: Internal derangement of right knee lateral meniscal tear. PLAN: Right knee arthroscopy with partial lateral meniscectomy and debridement. MMODL / IJN: [id number] /
[~2022-09-06 08:08] MED LIST changes: -DEXAMETHASONE SOD PHOSPHATE 10 MG/ML 1 ML VIAL IV ONE; +DEXAMETHASONE SOD PHOSPHATE 4 MG/ML 1 ML VIAL IV ONE; +HYDROmorphone 0.5 MG/0.5 ML SYRINGE IVP PRN; -LACTATED RINGERS 1,000 ML IV SCH; +ONDANSETRON 4 MG/2 ML VIAL IVP ONE; -fentaNYL (PF) 50 MCG/ML 2 ML AMP IVP PRN
[2022-09-06] MEDS: LACTATED RINGERS 1,000 ML IV SCH ×2 (08:32→08:45)
[2022-09-06 08:50] VITALS: TEMP 97.2
[2022-09-06] MEDS ORDERED: PROPOFOL 10 MG/ML 20 ML VIAL IV ONE (09:18)
[2022-09-06] MEDS ORDERED: MIDAZOLAM 2 MG/2 ML VIAL ONE (09:18)
[2022-09-06] MEDS ORDERED: fentaNYL (PF) 50 MCG/ML 2 ML AMP ONE (09:18)
[2022-09-06] MEDS ORDERED: KETOROLAC 30 MG/ML 1 ML VIAL ONE (09:18)
--- NOTE | 2022-09-06 10:19 | P.OP ---
Date of Procedure: 09/06/22 Preoperative Diagnosis: Internal derangement right knee Postoperative Diagnosis: 1. Tear medial and lateral meniscus right knee 2. Grade 4 chondromalacia lateral femoral condyle right knee 3. Reactive synovitis medial, lateral and super patellar compartments right knee Procedure(s) Performed: 1. Arthroscopic partial medial and lateral meniscectomy right knee 2. Arthroscopic microfracture lateral femoral condyle right knee 3. Arthroscopic partial synovectomy medial, lateral and suprapatellar compartments right knee Anesthesia: JENNIFERA, local Surgeon: Vincent Lazo Estimated Blood Loss (ml): 7 Pathology: none sent Condition: stable Disposition: PACU Indications for Procedure: 67-year-old patient seen with progressive right knee pain. After treatment options were discussed, she elected to proceed with arthroscopy. Operative Findings: See description of procedure Description of Procedure: Patient was taken to the operative suite. Patient underwent a general anesthetic by the department of anesthesia. Patient was given preoperative antibiotics. The right lower extremity was placed in a well-padded arthroscopic leg velasquez. The right leg was prepped and draped in the normal sterile orthopedic fashion. A lateral parapatellar and suprapatellar incision was made. Trochars were inserted. Arthroscopy was initiated. Suprapatellar pouch revealed diffuse thick reactive synovitis. The patellofemoral joint appeared to articulate congruently. There was grade 2/3 chondromalacia of the patella with no osteochondral tears present. The scope was guided into the medial gutter. No loose bodies or plica were identified. The scope was then guided into the medial compartment. A medial parapatellar incision was made. Trocar inserted followed by probe. There was a radial tear posterior horn medial meniscus. There was grade 2/3 chondromalacia medial femoral condyle with some small osteochondral flap tears. There was some thick reactive synovitis anteriorly. I performed a partial medial meniscectomy getting down to stable meniscal tissue. I performed a partial synovectomy. I performed a chondroplasty of the medial femoral condyle. The residual meniscus was stable. The residual osteochondral surface was stable. There was good decompression of the synovitis. Scope and probe were then guided into the intercondylar notch. Cruciates were identified, probed and found to be stable. The scope and probe were then guided into lateral compartment. There was a complex tear involving the posterior horns and midbody of the lateral meniscus. There were grade 3/4 chondromalacia changes of the lateral femoral condyle. There was some thick reactive synovitis anteriorly. I performed a partial lateral meniscectomy. I performed a chondroplasty of the lateral femoral condyle. I performed a partial synovectomy. I noted area of exposed bone lateral femoral condyle. I introduced a microfracture awl performed a microfracture to the lateral femoral condyle penetrating the bone with resultant bleeding at the microfracture site. The residual meniscus was probed and found to be stable. The residual osteochondral surface was probed and found to be stable. There was good decompression of synovitis. I now guided the scope into the suprapatellar compartment. I introduced a motorized shaver into the suprapatellar compartment. I debrided some piecemeal fragments of meniscus I encountered. I performed a partial synovectomy. The shaver was removed. There was good decompression of synovitis. I took one more look on the entire knee, no residual debris. Instruments were now removed from the joint. The joint was infiltrated with .25% Marcaine. Steri-Strips were applied to the portal sites. Sterile dressings were applied. The patient was placed into a RABIA hose. No angel luis rniquet was utilized. The patient was awakened, transferred to a bed and taken to recovery stable satisfactory condition.
[2022-09-06 11:12] VITALS: BP 118/75; PULSE 71; RESP 18
== END 2022-09-06 11:37 | disposition home or self-care (01) ==
LOC: OR 08:08
PROVIDERS: ATTEND Orthopaedic Surgery
DX: M23.303 Other meniscus derangements, unspecified medial meniscus, right knee (principal); M23.300 Other meniscus derangements, unspecified lateral meniscus, right knee; M94.261 Chondromalacia, right knee; M65.861 Other synovitis and tenosynovitis, right lower leg; M25.461 Effusion, right knee; J44.9 Chronic obstructive pulmonary disease, unspecified; F17.210 Nicotine dependence, cigarettes, uncomplicated; Z98.890 Other specified postprocedural states; Z79.899 Other long term (current) drug therapy
CPT/HCPCS: 29880; 29879; J2250; J1100; J0690; J2405; J3010; J1885; J2704

== ENCOUNTER 2023-08-22 10:26 | Emergency (ER) | payer MEDICARE, OTHER ==
[2023-08-22] MEDS ORDERED: LIDOCAINE 5% PATCH TOPICAL SCH (11:45)
--- NOTE | 2023-08-22 12:17 | XR ---
EXAMINATION TYPE: XR ribs RT w pa chest xray DATE OF EXAM: 08/22/2023 COMPARISON: NONE TECHNIQUE: PA and lateral views submitted. HISTORY: Pain FINDINGS: The lungs are clear and there is no pneumothorax, pleural effusion, or focal pneumonia. Heart size normal and no overt failure. Osseous structures demonstrate hypertrophic and degenerative changes of the spine. Postsurgical change overlying the cervical spine. Diffuse osteopenia with AC joint arthrop athy but no humeral arthropathy. Linear density right lung compatible scarring or atelectasis. IMPRESSION: 1. Right basilar linear atelectasis. No definite acute displaced rib fracture..
--- NOTE | 2023-08-22 12:31 | ED ---
Fall HPI - General Chief Complaint: Fall Stated Complaint: Fall Time Seen by Provider: 08/22/23 10:30 Source: patient Mode of arrival: ambulatory - History of Present Illness Initial Comments: 68-year-old female presents emergency department for evaluation after a fall. States that she tripped yesterday in the hospital. Her mother was admitted for a heart attack and she was going from the emergency department to the catheterization lab when she actually fell. She landed on her right chest wall and right knee. States that she was not concerned about herself at that time if she wanted to go support her mom. She does have morphine and Sargent that she takes at home for chronic pain. States that she has not taken these medications since yesterday morning. She was concerned if she took them that she would not recognize if her chest wall pain was getting worse. She admits that it is difficult to take a deep breath. She denies any fevers, chills or cough. Denies any head injury or loss of consciousness. She does not take any blood thinners. No other alleviating, precipitating modifying factors - Related Data Home Medications Medication Instructions Recorded Confirmed Hydrocodone/Acetaminophen 1 each PO BID 01/31/18 09/06/22 [Hydrocodon-Acetaminophn 10-325] Morphine Sulfate [Morphine Sulfate 30 mg PO BID 01/31/18 09/06/22 ER] Cholecalciferol [Vitamin D3 (25 1,000 unit PO DAILY 09/01/20 09/06/22 Mcg = 1000 Iu)] Cyanocobalamin (Vitamin B-12) 1,000 mcg PO DAILY 09/01/20 09/06/22 [Vitamin B-12] L.acidoph,Paracasei, B.lactis 1 each PO DAILY 09/01/20 09/06/22 [Probiotic] Fluticasone/Umeclidin/Vilanter 1 puff INHALATION QAM 09/04/22 09/06/22 [Trelegy Ellipta 100-62.5-25] Allergies Allergy/AdvReac Type Severity Reaction Status Date / Time No Known Allergies Allergy Verified 08/22/23 10:32 Review of Systems ROS Statement: Those systems with pertinent positive or pertinent negative responses have been documented in the HPI. ROS Other: All systems not noted in ROS Statement are negative. Past Medical History Past Medical History: COPD, Musculoskeletal Disorder, Osteoarthritis (OA) Additional Past Medical History / Comment(s): RIGHT KNEE GIVES OUT. DDD in neck.sciatic pain down into buttocks, frequent urination (WEAR PAD). urinary leakage, History of Any Multi-Drug Resistant Organisms: None Reported Past Surgical History: Ear Surgery, Orthopedic Surgery, Tubal Ligation Additional Past Surgical History / Comment(s): LEFT ARTHRO OF SHOULDER. arthroscopy rt knee, surgery for fx left knee x2, callus removed from left foot, hammer toes left foot, ORIF rt ankle, neck Past Anesthesia/Blood Transfusion Reactions: No Reported Reaction Past Psychological History: Anxiety Smoking Status: Current every day smoker Past Alcohol Use History: None Reported Past Drug Use History: None Reported - Past Family History Mother Family Medical History: No Reported History Father Family Medical History: Deep Vein Thrombosis (DVT) General Exam Limitations: no limitations General appearance: alert, in no apparent distress Head exam: Present: atraumatic, normocephalic, normal inspection Eye exam: Present: normal appearance, PERRL, EOMI. Absent: scleral icterus, conjunctival injection, periorbital swelling ENT exam: Present: normal exam, mucous membranes moist Neck exam: Present: normal inspection. Absent: tenderness, meningismus, lymphadenopathy Respiratory exam: Present: normal lung sounds bilaterally, chest wall tenderness (Left lateral chest wall). Absent: respiratory distress, wheezes, rales, rhonchi, stridor Cardiovascular Exam: Present: regular rate, normal rhythm, normal heart sounds. Absent: systolic murmur, diastolic murmur, rubs, gallop, clicks GI/Abdominal exam: Present: soft, normal bowel sounds. Absent: distended, tenderness, guarding, rebound, rigid Extremities exam: Present: normal inspection, full ROM, normal capillary refill. Absent: tenderness, pedal edema, joint swelling, calf tenderness Back exam: Present: normal inspection Neurological exam: Present: alert, oriented X3, CN II-XII intact Psychiatric exam: Present: normal affect, normal mood Skin exam: Present: warm, dry, intact, normal color. Absent: rash Course Vital Signs 08/22/23 08/22/23 10:29 12:42 Temperature 98.2 F 98.0 F Pulse Rate 71 55 L Respiratory 20 18 Rate Blood Pressure 141/80 129/81 O2 Sat by Pulse 98 97 Oximetry Medical Decision Making - Medical Decision Making Was pt. sent in by a medical professional or institution (BENTLEY Grider, SECURITY INCIDENT RESPONSE ENGINEER, urgent care, hospital, or usp...) When possible be specific @ -No Did you speak to anyone other than the patient for history (EMS, parent, family, police, friend...)? What history was obtained from this source @ -No Did you review nursing and triage notes (agree or disagree)? Why? @ -I reviewed and agree with nursing and triage notes Were old charts reviewed (outside hosp., previous admission, EMS record, old EKG, old radiological studies, urgent care reports/EKG's, usp records)? Report findings @ -No old charts were reviewed Differential Diagnosis (chest pain, altered mental status, abdominal pain women, abdominal pain men, vaginal bleeding, weakness, fever, dyspnea, syncope, headache, dizziness, GI bleed, back pain, seizure, CVA, palpatations, mental health, musculoskeletal)? @ -Differential Musculoskeletal Muscular strain, contusion, ligament sprain, fracture, arthritis, septic arthritis, bursitis, cellulitis, muscle spasm, nerve compression, DVT, arterial occlusion, herpes zoster, electrolyte abnormality, tumor.... This is not meant to be in all inclusive list EKG interpreted by me (3pts min.). @ -Not done X-rays interpreted by me (1pt min.). @ -Yes and demonstrates no acute fractures CT interpreted by me (1pt min.). @ -None done U/S interpreted by me (1pt. min.). @ -None done What testing was considered but not performed or refused? (CT, X-rays, U/S, labs)? Why? @ -None What meds were considered but not given or refused? Why? @ Pain medications however patient does not want accept pain medications because she in pain contract Did you discuss the management of the patient with other professionals (prof essionals i.e. BENTLEY Grider, SECURITY INCIDENT RESPONSE ENGINEER, lab, RT, psych nurse, social scientist, director of sustainability programs, teacher, seismology technical officer, case supervisor)? Give summary @ -No Was smoking cessation discussed for >3mins.? @ -No Was critical care preformed (if so, how long)? @ -No Were there social determinants of health that impacted care today? How? (Homelessness, low income, unemployed, alcoholism, drug addiction, transportation, low edu. Level, literacy, decrease access to med. care, halfway, rehab)? @ -No Was there de-escalation of care discussed even if they declined (Discuss DNR or withdrawal of care, Hospice)? DNR status @ -No What co-morbidities impacted this encounter? (DM, HTN, Smoking, COPD, CAD, Cancer, CVA, ARF, Chemo, Hep., AIDS, mental health diagnosis, sleep apnea, morbid obesity)? @ Chronic back pain Was patient admitted / discharged? Hospital course, mention meds given and route, prescriptions, significant lab abnormalities, going to OR and other pertinent info. @ Upon arrival patient is placed in room 32. Thorough history and physical exam was performed. Patient sent for x-rays of her right ribs. No fracture identified. No pneumothorax. We did place a lidocaine patch to the site. Patient will be discharged home and is going to continue her previously prescribed pain medications. To follow up with doctor in 2-4 days return for any new or worsening symptoms or patient agreeable with plan she was discharged in stable condition Undiagnosed new problem with uncertain prognosis? @ -Yes Drug Therapy requiring intensive monitoring for toxicity (Heparin, Nitro, Insulin, Cardizem)? @ -No Were any procedures done? @ -No Diagnosis/symptom? @ Acute fall, acute right chest wall pain Acute, or Chronic, or Acute on Chronic? @ Acute Uncomplicated (without systemic symptoms) or Complicated (systemic symptoms)? @ -Complicated Side effects of treatment? @ -No Exacerbation, Progression, or Severe Exacerbation? @ -No Poses a threat to life or bodily function? How? (Chest pain, USA, NM, pneumonia, PE, COPD, DKA, ARF, appy, cholecystitis, CVA, Diverticulitis, Homicidal, Suicidal, threat to staff... and all critical care pts) @ -No Disposition Clinical Impression: Fall, Right-sided chest wall pain Disposition: HOME SELF-CARE Condition: Stable Instructions (If sedation given, give patient instructions): Chest Wall Pain (ED) Additional Instructions: I recommend that you buy Aspercreme patches. Continue taking your pain medications as directed. Follow up with your doctor. Return for any new or worsening symptoms Is patient prescribed a controlled substance at d/c from ED?: No Referrals: Ambrose Decker MD [Primary Care Provider] - 1-2 days Time of Disposition: 12:30
[2023-08-22 12:46] VITALS: BP 129/81; PULSE 55; RESP 18; TEMP 98
== END 2023-08-22 12:44 | disposition home or self-care (01) ==
LOC: EC 10:26
DX: R07.89 Other chest pain (principal); J44.9 Chronic obstructive pulmonary disease, unspecified; F17.200 Nicotine dependence, unspecified, uncomplicated; Z86.59 Personal history of other mental and behavioral disorders; Z79.51 Long term (current) use of inhaled steroids; W19.XXXA Unspecified fall, initial encounter
CPT/HCPCS: 99284

== ENCOUNTER → 2024-10-10 | Outpatient (CLI) | payer MEDICARE, OTHER ==
--- NOTE | 2024-10-13 11:29 | MM ---
Reason for Exam: Screening (asymptomatic). Last mammogram was performed 2 year(s) and 8 month(s) ago. Patient History: Menarche at age 13. First Full-Term at age 16. Postmenopausal. Estrogen, starting at age 52 for 1 year. Progesterone, starting at age 52 for 1 year. Risk Values: Shayy 5 year model risk: 1.2%. NCI Lifetime model risk: 4.0%. Prior Study Comparison: 10/14/2019 Bilateral Screening Mammogram, [facility]. 02/17/2021 Bilateral Screening Mammogram, [facility]. 02/21/2022 Bilateral Screening Mammogram, [facility]. Tissue Density: The breasts are almost entirely fatty. Findings: Analyzed By CAD. There is no suspicious group of microcalcifications or new suspicious mass in either breast. Overall Assessment: Negative, BI-RAD 1 Management: Screening Mammogram of both breasts in 1 year. . Patient should continue monthly self-breast exams. A clinical breast exam by your physician is recommended on an annual basis. This exam should not preclude additional follow-up of suspicious palpable abnormalities. Note on Shayy scores and lifetime risk: 1. A Shayy score greater than 3% is considered moderate risk. If this is the case, consider specialist referral to assess eligibility for a risk reducing agent. 2. If overall lifetime risk for the development of breast cancer is 20% or higher, the patient may qualify for future screening with alternating mammogram and breast MRI. [facility], , 10/13/2024 11:26 AM. Electronically signed and approved by: Lucas Lamar M.D. Radiologis
== END | disposition home or self-care (01) ==
LOC: RADMAMWWP 07:14
PROVIDERS: ATTEND Family Medicine
DX: Z12.31 Encounter for screening mammogram for malignant neoplasm of breast (principal); Z78.0 Asymptomatic menopausal state
CPT/HCPCS: 77063; 77067

== ENCOUNTER → 2025-04-30 | Outpatient (CLI) | payer MEDICARE, OTHER ==
--- NOTE | 2025-05-02 20:27 | CT ---
EXAMINATION TYPE: CT chest wo con DATE OF EXAM: 04/30/2025 11:56 AM COMPARISON: CT chest 02/17/2021 CLINICAL INDICATION: Female, 70 years old with history of R91.8 SPN, FOUND NODULES IN NOV DLP-421.3 TECHNIQUE: Axial images were obtained at 5 mm thick sections. Reconstructed images are reviewed on eyeQ computer in the coronal plane. Contrast used: mL of , (none if empty) Oral contrast used: (none if empty) CT DLP: 421.3 mGycm, Automated exposure control for dose reduction was used. FINDINGS: Portion of the thyroid visualized is normal. No suspicious lung nodules or focal infiltrates are present. Previous abnormal study is not available at this location. No enlarged mediastinal or hilar adenopathy is evident. The ascending aorta diameter at the level o f the main pulmonary artery is 3.7 cm. The main pulmonary artery diameter at the bifurcation is 2.8 cm. No significant coronary artery calcifications. Limited CT sections are obtained through the upper abdomen. Abdomen is essentially unremarkable. IMPRESSION: 1. Unremarkable CT chest. 2. Low-dose CT chest one year. [facility], , 05/02/2025 8:25 PM
== END | disposition home or self-care (01) ==
LOC: RADCTMAIN 11:39
PROVIDERS: ATTEND Family Medicine
DX: R91.8 Other nonspecific abnormal finding of lung field (principal); J44.9 Chronic obstructive pulmonary disease, unspecified
CPT/HCPCS: 71250